=== PATIENT | female | born 1975 | race Caucasian/White ===

== ENCOUNTER → 2018-03-19 | Outpatient (CLI) | payer BC | END | disposition home or self-care (01) | LOC: KCIC MAMMO 09:17 | DX: N64.4 Mastodynia (principal); N60.12 Diffuse cystic mastopathy of left breast | CPT/HCPCS: 76641; 77066; G0279 ==

== ENCOUNTER → 2019-07-04 | Outpatient (CLI) | payer BC ==
[2016-09-06 10:05] VITALS: BP 91/60
[~2019-07-04] MED LIST: CIPR500T94 PO; COLE1TAB2 PO; LEXAPRO10 MG PO; LOPE2TAB27 PO; ONDA4TAB10 PO; [UNRECOGNIZED DRUG - OTHER]; vitamin b12 PO
--- NOTE | 2019-07-04 19:34 | KCIC ---
BILATERAL DIAGNOSTIC MAMMOGRAPHY AND BREAST ULTRASOUND History: Six-month follow-up. Comparison: Bilateral diagnostic mammogram and breast ultrasound 03/19/2018. Technique: Bilateral digital mammogram views were obtained. Findings: Breast Tissue Density D :The breasts are extremely dense, which lowers the sensitivity of mammography. Bilateral glandular nodularity is unchanged. There are no suspicious microcalcifications or architectural distortion. Real-time ultrasound imaging of the right and left breast is performed. Right: At the 12:00 position 4 cm from the nipple there is a probable complicated cyst that has increased in size measuring up to 8 mm, previously 3 mm. At the 3:00 position 3.5 cm from the nipple a septated cyst is mildly increased in size measuring up to 8 mm, previously 5 mm. At the 10:00 position 7 cm from the nipple previously seen intramammary lymph nodes are not identified. There is new fibrocystic change in this location measuring up to 8 mm. There is new probable fibrocystic change at the 10:00 position 5 cm from the nipple measuring up to 4 mm. There are no abnormal axillary lymph nodes. Left: There are 4 cysts or complicated cyst of the left breast that are unchanged seen at the 1:00 position 3 cm from the nipple, 2:00 position 5 cm and the nipple, 3:00 position 5 cm from the nipple, and 9:00 position 6 cm from the nipple. There are no abnormal axillary lymph nodes. IMPRESSION: 1. Right and left mammogram are stable. 2. Cysts or complicated cysts of the left breast are stable. 3. There are new probable fibrocystic changes in the right breast at the 10:00 position 5 cm and 7 cm from the nipple. Recommend six-month follow-up right breast ultrasound. BI-RADS category 3: Probably benign. The images were reviewed with computer-aided detection. Patient information is entered into the reminder system with a target due date for the next screening mammogram. Mammography is the most sensitive method for finding small breast cancers, but it does not detect them all and is not a substitute for careful clinical examination. A negative mammogram does not negate a clinically suspicious finding and should not result in delay in biopsying a clinically suspicious abnormality. "Our facility is accredited by the [employer] Mammography [employer]." Electronically signed by: Brendan Kirkland MD (07/04/2019 7:31 PM) [facility]
== END | disposition home or self-care (01) ==
LOC: KCIC MAMMO 12:35
PROVIDERS: ATTEND Internal Medicine
DX: N60.02 Solitary cyst of left breast (principal); N60.01 Solitary cyst of right breast
CPT/HCPCS: 76641; 77066

== ENCOUNTER → 2020-06-30 | Outpatient (CLI) | payer BC ==
[2016-09-06 10:05] VITALS: BP 91/60
--- NOTE | 2020-06-30 14:14 | KCIC ---
Bilateral breast ultrasound: Reason for examination: Follow-up nodules. Comparison is made to previous studies dated 07/04/2019 and 03/19/2018. Bilateral whole breast ultrasound including evaluation of all 4 quadrants and the retroareolar and axillary regions of both breasts was performed. The right breast continues to show presence of multiple small anechoic and hypoechoic fibrocystic lesions which are subcentimeter in size and have not changed but currently. No suspicious nodules are seen. No abnormal appearing lymph nodes are seen in the axilla. The left breast also continues to show small anechoic and hypoechoic nodules. There is a 8.2 mm hypoechoic circumscribed lesion consistent with fibroadenoma at the 2:00 position 5 cm from the nipple which appears relatively stable. There is also a 4.2 mm hypoechoic nodule consistent with probable fibroadenoma at the 9:00 position 6 cm from the nipple There does however appear to be a new hypoechoic 5.4 mm nodule in the 9:00 position 3 cm from the nipple which may represent a complicated cyst or small fibroadenoma with no abnormal vascularity. Recommend continued 6 month follow-up. IMPRESSION: No change in small cystic and fibrocystic lesion in the right breast. Small solid nodules consistent with fibroadenoma at the 2:00 and 9:00 positions which appear to be stable. Additional new 5.4 mm hypoechoic lesion at the 9:00 position 3 cm from the nipple which may represent a small complicated cysts or fibroadenoma. Recommend left breast ultrasound follow-up in 6 months. BI-RADS Category 3: Probably Benign. "Our facility is accredited by the [employer] Mammography Program." This patient's information has been entered into a reminder system for the patient to be notified with the results of her examination and a target date for the next mammogram. Electronically signed by: Marge Miller MD (06/30/2020 2:11 PM) [facility]
== END ==
LOC: KCIC US 13:10
PROVIDERS: ATTEND Internal Medicine
DX: R92.8 Other abnormal and inconclusive findings on diagnostic imaging of breast (principal); N63.11 Unspecified lump in the right breast, upper outer quadrant; N63.12 Unspecified lump in the right breast, upper inner quadrant
CPT/HCPCS: 76641

== ENCOUNTER → 2021-04-14 | Day surgery (SDC) | payer BC ==
[~2021-04-14] VITALS: Ht 157.5 cm; Wt 72.0 kg
[~2021-04-14] MED LIST changes: +CLON-77 PO; +CYAN-9 PO; +DICY10CA3 PO; +HYDROmorphone 2 MG/ML VIAL IVP PRN; +IV RINGERS,LACTATED 1000ML 1,000 ML IV SCH; +LIDOCAINE 2% PF 5 ML VIAL. ONE; +MORPHINE SULFATE 2 MG/ML INJ. IVP PRN; +PANT40TA77 PO; +PROCHLORPERAZINE 10 MG/2 ML VIAL. IVP PRN; +PROPOFOL 10 MG/ML (20ML) VIAL. IV ONE; +SERT50TA PO; +fentaNYL PF VIAL 100 MCG/2 ML VIAL IVP PRN
[2021-04-14 09:07] VITALS: BP 109/78
[2021-04-14 10:46] VITALS: BP 116/74
--- NOTE | 2021-04-18 09:09 | PATHOLOGY ---
[facility] Accession Number: [id number] . 01 Material submitted: . PART A: small bowel - SMALL BOWEL BX PART B: ANTRUM - BX ANTRUM AND BODY. Modifiers: body PART C: esophagus - DISTAL ESOPHAGUS BX. Modifiers: distal PART D: ileum - BX TERMINAL ILEUM. Modifiers: TERMINAL PART E: colon - RIGHT COLON BX. Modifiers: right PART F: colon - BX LEFT COLON. Modifiers: left PART G: rectum - RECTAL BX . 01 Clinical history: . RECTAL BLEEDING, ABDOMINAL PAIN, DIARRHEA EGD, COLONOSCOPY . 02 Diagnosis: A. Small bowel biopsy: - No significant pathologic abnormalities. . B. Gastric biopsies, gastric antrum and gastric body: - Congestion and slight chronic inflammation. . C. Esophageal biopsies, distal esophagus: - Segments of esophagogastric and gastric mucosa showing chronic inflammation. . D. Small intestine mucosa, terminal ileum biopsies: - No significant pathologic abnormalities. . E. Colonic mucosa, right colon biopsies: - No diagnostic abnormalities. . F. Colonic mucosa, left colon biopsies: - No diagnostic abnormalities. . G. Colorectal biopsies, rectum: - Active chronic proctitis, mild to moderate, without granulomas or specific features. [facility] 04/18/2021 0805 [facility] . 02 Comment: Sections of the duodenal biopsy where best oriented, show no sprue-like changes or significant inflammatory changes. . Sections of the gastric biopsy reveal segments of gastric body, antral/body, and antral mucosa showing congestion and slight chronic inflammation. An immunoperoxidase stain for Helicobacter is negative for Helicobacter organisms. . Sections of the distal esophageal biopsy reveal segments of esophagogastric and gastric mucosa showing mild to moderate chronic inflammation. There is no evidence of Krishnamurthy's change, dysplasia, or malignancy. . Sections of the terminal ileum biopsy reveal segments of small intestine mucosa containing mucosal associated lymphoid tissue. Where best oriented, the villi show no sprue-like changes or significant inflammatory changes. . Sections of the right colon and left colon biopsies appear similar and reveal segments of a colonic mucosa containing a few mucosal-associated lymphoid aggregates. There is no evidence of a chronic destructive colitis, lymphocytic colitis, or collagenous colitis. . Sections of the rectal biopsy reveal segments of rectal mucosa showing mild to moderate active chronic inflammation. There are no granulomas or specific features. There is no dysplasia or evidence of malignancy. (J[facility]/db; 04/15/2021) . 02 Electronically signed: . Amol Peñaloza MD, Pathologist NPI- [id number] . 01 Gross description: . A. The specimen is submitted in formalin, labeled "Suhail, Adamaris, small bowel biopsy". Received are 4 segments of pale bishop tissue ranging in size from 0.2 to 0.3 cm in maximum dimensions. The specimen is submitted in cassette A1. . B. The specimen is submitted in formalin, labeled "Adamaris Jang, biopsy antrum and body". Received are 3 segments of pale bishop tissue ranging in size from 0.3 to 0.5 cm in maximum dimensions. The specimen is submitted in cassette B1. . C. The specimen is submitted in formalin, labeled "Adamaris Jang, distal esophageal biopsy". Received are 3 segments of pale bishop tissue ranging in size from 0.2 to 0.6 cm in maximum dimensions. The specimen is submitted in cassette C1. . D. The specimen is submitted in formalin, labeled "Adamaris Jang, biopsy terminal ileum". Received are 2 segments of pale bishop tissue ranging in size from 0.3 to 0.5 cm in maximum dimensions. The specimen is submitted in cassette D1. . E. The specimen is submitted in formalin, labeled "Suhail, Adamaris, right colon biopsy". Received are 6 segments of pale bishop tissue ranging in size from 0.3 to 0.5 cm in maximum dimensions. The specimen is submitted in cassette E1. . F. The specimen is submitted in formalin, labeled "Suhail, Adamaris, left colon biopsy". Received are multiple segments of pale bishop tissue ranging in size from 0.2 to 0.5 cm in maximum dimensions. The specimen is submitted in cassette F1. . G. The specimen is submitted in formalin, labeled "Adamaris Jang, rectal biopsy". Received are 4 segments of pale bishop tissue ranging in size from 0.2 to 0.5 cm in maximum dimensions. The specimen is submitted in cassette G1. ([facility]; 04/14/2021) NRI/NRI 04/14/2021 1727 Local . 02 Pathologist provided ICD-10: K29.50, K20.90, K62.89, K62.5, R10.9, R19.7 . 02 CPT . 780367, 387604, [id number], [id number], [id number], [id number], [id number], [id number] Specimen Comment: A courtesy copy of this report has been sent to [phone], [phone] Specimen Comment: [id number] Specimen Comment: Report sent to / DR AGUILAR Performed at: 01 [facility] [address] [facility] [address], [place] [id number] MD Og Johnson MD Phone: [phone] Performed at: 02 [facility] [address] [place], [place] [id number] MD Amol Peñaloza MD Phone: [phone]
== END | disposition home or self-care (01) ==
LOC: ENDOS 08:30
PROVIDERS: ATTEND Internal Medicine Gastroenterology
DX: K62.5 Hemorrhage of anus and rectum (principal); K52.9 Noninfective gastroenteritis and colitis, unspecified; K63.89 Other specified diseases of intestine; K31.89 Other diseases of stomach and duodenum; K64.0 First degree hemorrhoids; K21.00 Gastro-esophageal reflux disease with esophagitis, without bleeding; K29.50 Unspecified chronic gastritis without bleeding; F41.9 Anxiety disorder, unspecified; Z86.73 Personal history of transient ischemic attack (TIA), and cerebral infarction without residual deficits; Z79.899 Other long term (current) drug therapy; Z98.890 Other specified postprocedural states; Z91.040 Latex allergy status; Z88.8 Allergy status to other drugs, medicaments and biological substances; Z20.822 Contact with and (suspected) exposure to COVID-19
CPT/HCPCS: 43239; 45380; 81025; 87426; J2704